=== PATIENT | male | born 1945 | race Caucasian/White ===

== ENCOUNTER 2016-12-02 08:41 | Outpatient (CLI) | payer MEDICARE, BC ==
--- NOTE | ~2016-12-02 | HEMODYNAMI ---
PATIENT:HENNA DESAI MEDICAL RECORD: [id number] : 47 LOCATION:[facility] ADMISSION DATE: 12/02/16 Generatedon:12/02/201610:59 Patient name: HENNA DESAI Patient #: [id number] SSN: DO B: 1945 Date of study: 12/02/2016 Page: Of Hemodynamic Procedure Report Patient Data Patient Demographics Procedure consent was obtained First Name: HENNA Gender: Male Last Name: LLOYD : 1945 [facility] Initial: KARLA Age: 71 year(s) Patient #: [id number] Race: Unknown Additional ID: [id number] Contact details Address: [address] [place] [address] State: [place] City: [place] Zip code: [address] Past Medical History Allergies Allergen Reaction Date Comments Reported Other allergy 12/02/2016 tetnus Admission Admission Data Admission Date: 12/02/2016 Admission Time: 8:41 Lab Results Lab Result Date: 12/02/2016 Lab Result Time: 0:00 Biochemistry Name Units Result Min Max BUN mg/dl 21 --(----)-* 7 18 Creatinine mg/dl 1.1 --(--*-)-- 0.6 1.3 CBC Name Units Result Min Max Hemoglobin g/dl 14.4 --(*---)-- 13.5 17.5 Procedure Procedure Types Cath Procedure Diagnostic Procedure [facility] w/Coronaries FFR/IVUS Intra-Coronary IVUS Initial PCI Procedure Coronary Stent Initial Coronary Stent Additional Miscellaneous Procedures Procedure Description Procedure Date Procedure Date: 12/02/2016 Procedure Start Time: 10:35 Procedure End Time: 10:58 Procedure Staff Name Function Jake Gerber MD Performing Physician Coby Arteaga RT Scrub Berta Maciel RN Nurse Pamela Godinez RT Monitor Procedure Data Cath Procedure Fluoroscopy Diagnostic fluoroscopy Total fluoroscopy Time: 7.5 time: 7.5 min min Diagnostic fluoroscopy Total fluoroscopy dose: dose: 1331 mGy 1331 mGy Contrast Material Contrast Material Type Amount (ml) Isovue 300 122 Entry Location Entry Primary Successful Side Size Upsize Upsize Entry Closure Succes sful Closure Location (Fr) 1 (Fr) 2 (Fr) Remarks Device Remarks Femoral Right 5 Fr 6 Fr Exoseal artery Short Estimated blood loss: 10 ml Diagnostic catheters Device Type Used For End Catheter Placement Cordis 5Fr Pigtail Procedure Catheter (MP) Cordis 5Fr JL 4.0 Procedure Catheter (MP) Cordis 5Fr 3DRC Catheter Procedure (MP) Diagnostic Infinity 5Fr Procedure AR 2 MOD catheter Procedure Complications No complications Procedure Medications Medication Administration Route Dosage Oxygen NC 2 l/min Lidocaine 2% added to field 20 Heparin Flush Bag added to field 2 bags (1000units/500ml NS) 0.9% NaCl I.V. 100 ml/hr Versed I.V. 1 mg Fentanyl I.V. 50 mcg Versed I.V. 1 mg Fentanyl I.V. 50 mcg Heparin Bolus I.V. 4000 units Integrilin (Bolus I.V. 9.5 ml 2mg/ml) Versed I.V. 1 mg Fentanyl I.V. 50 mcg Plavix P.O. 600 mg Hemodynamics Rest HGB: 14.4 (g/dl) Heart Rate: 85 (bpm) Snapshots Pre Cath Intra NCS Post Cath Vital Signs Time Heart Resp SPO2 NIBP (mmHg) Rhythm Pain Sedation Rate (ipm) (%) Status Level (bpm) 10:23:32 93 22 99 Measuring NSR 0 (11) 10(A) , No pain 10:26:05 84 16 99 155/91(139) NSR 0 (11) 10(A) , No pain 10:30:36 81 17 96 134/94(114) NSR 0 (11) 10(A) , No pain 10:34:58 83 15 94 119/100(114) NSR 0 (11) 10(A) , No pain 10:40:01 86 16 96 151/108(148) NSR 0 (11) 9(A) , No pain 10:44:29 86 17 96 148/94(126) NSR 0 (11) 9(A) , No pain 10:48:47 87 19 94 124/91(122) NSR 0 (11) 9(A) , No pain 10:54:54 86 17 97 137/93(106) NSR 0 (11) 10(A) , No pain Medications Time Medication Route Dose Verified Delivered Reason Notes Effectiveness by by 10:21:55 Oxygen NC 2 Jake Buffie used for l/min Buzz Maciel RN procedure 10:22:01 Lidocaine 2% added 20ml Jake Jake for local to vial Buzz Gerber MD anesthetic field 10:22:06 Heparin Flush added 2 Jake Jake used for Bag to bags Buzz Gerber MD procedure (1000units/500ml field NS) 10:22:15 0.9% NaCl I.V. 100 Jake Buffie Per physician ml/hr Buzz Maciel RN 10:33:35 Versed I.V. 1 mg Jake Dawnie for sedation Buzz Maciel RN 10:33:40 Fentanyl I.V. 50 Jake Buffie for sedation mcg Buzz Maciel RN 10:39:44 Versed I.V. 1 mg Jake Dawnie for sedation Buzz Maciel RN 10:39:47 Fentanyl I.V. 50 Jake Dawnie for sedation mcg Buzz Maciel RN 10:43:29 Heparin Bolus I.V. 4000 Jake Buffie for verifi ed units Buzz Maciel RN anticoagulation with dr gerber 10:44:36 Integrilin I.V. 9.5 Jake Dawnie for Wasted (Bolus 2mg/ml) ml Buzz Maciel RN antiplatelet 0.5 ml therapy of vial 10:48:06 Versed I.V. 1 mg Jake Dawnie for sedation Buzz Maciel RN 10:48:10 Fentanyl I.V. 50 Jake Dawnie for sedation mcg Buzz Maciel RN 10:55:44 Plavix P.O. 600 Jake Dawnie for mg Buzz Maciel RN antiplatelet therapy Procedure Log Time Note 10:00:09 Coby Arteaga RT(R) sent for patient. Start room use. 10:18:55 Diagnostic Cath Status : Elective 10:19:15 Time tracking: Regular hours 10:19:19 Plan of Care:Hemodynamics will remain stable., Cardiac rhythm will remain stable., Comfort level will be maintained., Respiratory function will remain adequate., Patient/ family verbilizes understanding of procedure., Procedure tolerated without complication., Recovers from procedure without complications.. 10:19:25 Patient received from Pre/Post Procedure Room to CCL 2 Alert and oriented. Tansferred to table in Supine position. 10:19:27 Warm blankets applied, and marcello hugger turned on for patient comfort. 10::27 Correct patient and procedure confirmed by team. 10::29 Signed procedure consent form obtained from patient. 10:19:30 ECG and BP/O2 sat monitors applied to patient. 10:21:43 Vital chart was started 10:21:55 Oxygen 2 l/min NC was administered by Berta Maciel RN; used for procedure; 10:22:01 Lidocaine 2% 20ml vial added to field was administered by Jake Gerber MD; for local anesthetic; 10:22:06 Heparin Flush Bag (1000units/500ml NS) 2 bags added to field was administered by Jake Gerber MD; used for procedure; 10:22:15 0.9% NaCl 100 ml/hr I.V. was administered by Berta Maciel RN; Per physician; 10:25:23 Baseline sample Acquired. 10:25:33 Rhythm: sinus tachycardia 10:25:34 Full Disclosure recording started 10:25:54 H&P Date Dictated: 11/23/2016 Within 30 days and on chart., H&P Addendum completed by physician on day of procedure. (MUST COMPLETE FOR ALL OUTPATIENTS). 10:25:55 Pre-procedure instructions explained to patient. 10:25:57 Family in waiting room. 10:25:59 Patient NPO since Midnight. 10:26:11 Patient allergic to Other allergytetnus 10:26:15 Is the patient allergic to Iodine/contrast media? No. 10:28:36 Is patient on blood thinner?No 10:28:39 Patient diabetic? Yes. 10:28:40 If diabetic: On Metformin? Yes 10:28:44 If on Metformin: Last Dose? 12/01/2016 10:28:49 Snore? Yes 10:28:51 Sleep apnea? No 10:28:57 Dentures? Yes ? 10:29:05 IV patent on arrival in left forearm with 0.9% NaCl at KVO. 10:30:18 Lab results completed and on chart. 10:33:12 Lab Result : BUN 21 mg/dl 10:33:12 Lab Result : Creatinine 1.1 mg/dl 10:33:12 Lab Result : Hemoglobin 14.4 g/dl 10:33:18 Right groin area was prepped with chlora-prep and draped in sterile fashion 10:33:20 Alarms reviewed by R. N. 10:33:21 Sharps counted by scrub and verified by R.N. 10:33: Physician paged 10:33: Physician arrived 10:33:23 --------ALL STOP TIME OUT------ 10:33:26 Final Timeout: patient, procedure, and site verified with staff and physician. All members of the team are in agreement. 10:33:29 Right groin site verified by team. 10:33:33 Sedation plan: IV Moderate Sedation Versed, Fentanyl 10:33:35 Versed 1 mg I.V. was administered by Berta Maciel RN; for sedation; 10:33:40 Fentanyl 50 mcg I.V. was administered by Berta Maciel RN; for sedation; 10:34:06 Use device set Femoral Dx 10:34:09 Acist Syringe opened to sterile field. 10:34:10 Bag Decanter opened to sterile field. 10:34:11 Medline Cath Pack opened to sterile field. 10:34:11 Terumo 5Fr [place] Sheath opened to sterile field. 10:34:11 St Chago 260cm J .035 wire opened to sterile field. 10:34:13 Acist Hand Control opened to sterile field. 10:34:13 Acist Manifold opened to sterile field. 10:34:14 Diagnostic Infinity 5Fr Multipack catheter opened to sterile field. 10:34:14 Tegaderm 4 x 4 opened to sterile field. 10:34:17 Zero performed for pressure channel P1 10:35:24 Procedure started. 10:35:34 Local anesthetic to right femoral artery with Lidocaine 2% by Jake Gerber MD.INITIAL ACCESS ONLY 10:35:43 A 5 Fr sheath was inserted into the Right Femoral artery 10:35:55 Zero performed for pressure channel P1 10:36:22 A Cordis 5Fr Pigtail Catheter (MP) was advanced over the wire and used for Procedure. 10:36:43 EF : 60 % 10:36:45 Catheter removed. 10:36:55 A Cordis 5Fr JL 4.0 Catheter (MP) was advanced over the wire and used for Procedure. 10:37:01 LCA angiography performed. 10:37:37 Catheter removed. 10:37:46 A Cordis 5Fr 3DRC Catheter () was advanced over the wire and used for Procedure. 10:38:39 ERNST to LAD angiography performed. 10:38:44 RCA angiography performed. 10:39:44 Versed 1 mg I.V. was administered by Berta Maciel RN; for sedation; 10:39:47 Fentanyl 50 mcg I.V. was administered by Berta Maciel RN; for sedation; 10:40:02 Catheter removed. 10:40:30 A Diagnostic Infinity 5Fr AR 2 MOD catheter was advanced over the wire and used for Procedure. 10:40:35 SVG to Diag angiography performed. 10:41:47 Catheter removed. 10:42:24 Terumo 6Fr [place] Sheath opened to sterile field. 10:42:24 Dunn Whisper J 300cm 0.014 guide wire opened to sterile field. 10:42:26 [employer] BasixCompak Inflation Kit opened to sterile field. 10:42:27 Yarraatronic Launcher 6Fr HS II guide catheter opened to sterile field. 10:42:28 Burtrum Elim Ira Eagleye IVUS Catheter opened to sterile field. 10:42:31 Proceeding to intervention. 10:42:48 Sheath upsized to a 6 Fr Short. 10:43:29 Heparin Bolus 4000 units I.V. was administered by Berta Maciel RN; for anticoagulation; verified with dr gerber 10:43:39 6 Fr HS 2 guide catheter was inserted over the wire 10:43:43 Whisper wire advanced. 10:44:36 Integrilin (Bolus 2mg/ml) 9.5 ml I.V. was administered by Berta Maciel RN; for antiplatelet therapy; Wasted 0.5 ml of vial 10:45:27 IVUS catheter advanced over wire. 10:45:33 IVUS catheter removed over wire. 10:47:50 Inflation number: 1 A Euphora 2.0 x 20 Balloon was prepped and advanced across the R PDA, then inflated to 11 SPEEDY for 0:10 (min:sec). 10:48:06 Versed 1 mg I.V. was administered by Berta Maciel RN; for sedation; 10:48:09 Inflation number: 2 The Euphora 2.0 x 20 Balloon was reinflated across the R PDA, to 11 SPEEDY for 0:10 (min:sec). 10:48:10 Fentanyl 50 mcg I.V. was administered by Berta Maciel RN; for sedation; 10:48:18 Balloon removed over the wire. 10:50:28 Inflation Number: 3 A Zane OTW 2.25 x 38 stent was prepped and advanced across the R PDA. The stent was deployed at 11 SPEEDY for 0:10 (min:sec). 10:51:04 Stent catheter was removed intact over wire. 10:52:15 Inflation Number: 1 A Yarraatronic Integrity 4.0 X 18 stent was prepped and advanced across the Prox RCA. The stent was deployed at 17 SPEEDY for 0:10 (min:sec). 10:55:44 Plavix 600 mg P.O. was administered by Berta Maciel RN; for antiplatelet therapy; 10:56:09 Stent catheter was removed intact over wire. 10:56:10 Wire removed. 10:56:10 Guide catheter removed. 10:56:19 Cordis 6Fr Exoseal opened to sterile field. 10:56:29 Sheath removed intact; hemostasis achieved with Exoseal to the Right Femoral artery. 10:56:35 Procedure ended.(Physican Out) 10:56:48 Fluoroscopy time 07.50 minutes. 10:56:51 Fluoroscopy dose: 1331 mGy 10:56:51 Flurop Dose total: 1331 10:56:56 Contrast amount:Isovue 300 122ml. 10:56:57 Sharps counted by scrub and verified by R.N. 10:57:00 Insertion/operative site no bleeding no hematoma. 10:57:02 Post Procedure Pulses reassessed and unchanged 10:57:09 Post-procedure physical assessment completed. ASA score P 3 - A patient with severe systemic disease as per Jake Gerber MD. 10:57:13 Post procedure rhythm: unchanged. 10:57:16 Estimated blood loss: 10 ml 10:57:18 Post procedure instruction explained to patient.Patient verbalizes understanding. 10:57:48 Procedure type changed to Cath procedure, Diagnostic procedure, LHC, LHC w/Coronaries, FFR/IVUS, Intra-Coronary IVUS Initial, PCI procedure, Coronary Stent Initial, Coronary Stent Additional, Miscellaneous Procedures 10:58:06 Procedure and supply charges have been captured, reviewed, submitted and are correct. 10:58:28 Procedure Complication : No complications 10:58:31 Vital chart was stopped 10:58:31 See physician's report for complete and final results. 10:58:33 Report given to Pre/Post Procedure Room. 10:58:36 Patient transfered to Pre/Post Procedure Room with Stretcher. 10:58:39 Procedure ended. 10:58:39 Full Disclosure recording stopped 10:58:44 End room use (Document Last) 10:58:56 ACC-PCI Only Patient was given prescriptions, or instructed by Jake Gerber MD to start/continue the following medications upon discharge: Plavix Intervention Summary Intervention Notes Time ActionType Lesion and Equipment Action# Pressure Duration Attributes Used 10:47:50 Inflate R PDA Euphora 1 11 00:10 balloon 2.0 x 20 Balloon 10:48:09 Reinflate R PDA Euphora 2 11 00:10 balloon 2.0 x 20 Balloon 10:50:28 Place stent R PDA Zane OTW 3 11 00:10 2.25 x 38 stent 10:52:15 Place stent Prox RCA Medtronic 1 17 00:10 Integrity 4.0 X 18 stent Device Usage Item Name Manufacture Quantity Catalog Hospital Part Current Minimal Lot# / Number Charge Number Stock Stock Serial# Code Acist Acist 1 26971 264431 204048 082694 20 Syringe [employer] Inc Bag Microtek 1 2002S 362142 30070 263944 5 Shahab P. Tabatabai, [employer] Medline Cardinal 1 [id number] 019425 72834 392477 5 Cath Pack Health Terumo 5Fr Terumo 1 INX136 233463 201001 294729 [address] Chago 1 338012 455178 632080 998801 30 260cm J .035 wire Acist Hand Acist 1 77424 802122 822787 607577 5 Control Medical Systems Inc Acist Acist 1 25997 404243 315418 879442 5 Manifold Medical Systems Inc Diagnostic Cardinal 1 [id number] 774378 21339 469904 30 Infinity Health 5Fr Multipack catheter Tegaderm 4 3M 1 1626W 034427 325348 039245 5 x 4 Cordis 5Fr Cardinal 1 [id number] 5 Pigtail Health Catheter (MP) Cordis 5Fr Cardinal 1 036327 5 JL 4.0 Health Catheter (MP) Cordis 5Fr Cardinal 1 428437 5 3DRC Health Catheter (MP) Diagnostic Cardinal 1 [id number] 299480 290331 009341 20 Spreedly 5Fr AR 2 MOD catheter Terumo 6Fr Terumo 1 IQP950 130422 276810 782727 40 [place] Sheath Dunn Dunn 1 [id number] 002983 174458 741975 5 Whisper J Vascular 300cm 0.014 guide wire Merit Merit 1 YT2136 575452 201540 690836 15 BasixCompak Medical Inflation Kit Medtronic Medtronic 1 [id number] 888144 30980 477315 1 Launcher 6Fr HS II guide catheter Burtrum Burtrum 1 [id number] 923398 425999 251780 8 Elim Ira Eagleye IVUS Catheter Euphora 2.0 Medtronic 1 [id number] 060065 289714 847550 5 [id number] x 20 Balloon Zane OTW Medtronic 1 [id number] 193321 90477 545628 5 [id number] 2.25 x 38 stent Medtronic Medtronic 1 [id number] 611442 207741 8 [id number] Integrity 4.0 X 18 stent Cordis 6Fr Cardinal 1 [id number] 378714 291474 649458 10 [facility] Signature Audit [place] Stage Time Signature Unsigned Intra-Procedure 12/02/2016 Pamela Godinez 10:59:12 AM RT(R) Signatures Monitor : Pamela Godinez Signature : RT Date : Time : [facility] [address] [facility] [place] [address]
[2016-12-02] MEDS ORDERED: GLUCOPHAGE1000 MG PO (09:01)
[2016-12-02] MEDS ORDERED: NEURONTIN600 MG PO (09:01)
[2016-12-02] MEDS ORDERED: LEVEMIR100 U/M1 SC (09:02)
[2016-12-02] MEDS ORDERED: EFFEXOR XR150 MG PO (09:03)
[2016-12-02] MEDS ORDERED: ZOCOR40 MG PO (09:04)
[2016-12-02] MEDS ORDERED: FLOMAX0.4 MG PO (09:04)
[2016-12-02] MEDS ORDERED: NOVOLOG100 U/M1 SC (09:04)
[2016-12-02] MEDS ORDERED: PRINIVIL20 MG PO (09:05)
[2016-12-02] MEDS ORDERED: PROPECIA1 MG PO (09:06)
[2016-12-02] MEDS ORDERED: TOPROL XL50 MG PO (09:06)
[2016-12-02] MEDS ORDERED: BAYER CHEWABLE81 MG PO (09:07)
[2016-12-02] MEDS ORDERED: POTASSIUM99 M1 PO (09:07)
[2016-12-02 09:17] VITALS: BP 159/87; BMI 32.9
[2016-12-02 09:23] LABS: BASOPHILS 0.5 % (0-2); EOSINOPHILS 3.6 % (0-7); HEMATOCRIT 40.6 % (42.0-54.0); HEMOGLOBIN 14.4 g/dL (13.5-17.5); LYMPHOCYTES 30.9 % (15-50); MCH 31.8 pg (26.0-34.0); MCHC 35.5 g/dL (31.0-37.0); MCV 89.6 fL (80.0-100.0); MEAN PLATELET VOLUME 10.4 fL (7.4-10.4); MONOCYTES 9.6 % (2-11); NEUTROPHILS 55.4 % (40-80); PLATELET COUNT 171 10x3/uL (130-400); RBC 4.53 10x6/uL (4.20-6.10); WBC 7.3 10x3/uL (4.8-10.8)
[2016-12-02 09:42] LABS: ANION GAP 11.4 mmol/L (8-16); CALCIUM 9.7 mg/dL (8.5-10.1); CARBON DIOXIDE 28.1 mmol/L (21.0-32.0); CREATININE - SERUM 1.1 mg/dL (0.6-1.3); POTASSIUM - SERUM 4.5 mmol/L (3.5-5.1)
--- NOTE | 2016-12-02 11:20 | NUR ---
1110 RECEIVED PT FROM INSPECTOR SUBASSEMBLIES, PT IS DROWSY, DENIES ANY C/O PAIN OR NAUSEA. DRESSING TO RIGHT GROIN IS CDI, AREA IS SOFT AND NONTENDER. PEDAL PULSES PALPABLE. NSR, HR 88. BP 142/89. RR EVEN AND UNLABORED ON O2 AT 2 LPM, SAT IS 98%, CALL LIGHT IN REACH, AT BEDSIDE. INSTRUCTED PT/ PT NEED TO KEEP HEAD TO PILLOW AND RIGHT LEG STRAIGHT AND VERBALIZE UNDERSTANDING.
[2016-12-02] MEDS ORDERED: PLAVIX75 MG PO (11:40)
--- NOTE | 2016-12-02 11:52 | NUR ---
HR 84 BP 164/86 CHEST PAIN IS DENIED. 6 FR EXOSEAL R/GROIN CDI NO BLEEDING NO HEMATOMA NOTED. INSTRUCTED PATIENT TO KEEP HEAD FLAT ON PILLOW WITH RLE STRAIGHT. FAMILY AT SIDE
--- NOTE | 2016-12-02 12:39 | NUR ---
1220 DRESSING TO RIGHT GROIN IS CDI, AREA IS SOFT AND NONTENDER. PEDAL PULSES PALPABLE. PT DENIES ANY C/O. BERNARDA PO FLUIDS WITH NO C/O NAUSEA. AT BEDSIDE.
--- NOTE | 2016-12-02 13:18 | NUR ---
1315 PT DENIES ANY C/O. PT BENDING RIGHT KNEE AND MOVING RIGHT LEG UPON ARRIVAL OF NURSE. REINFORCED TEACHING TO LIMIT MOVEMENT OF LEG AND PT VERBALIZES UNDERSTANDING. AT BEDSIDE, CALL LIGHT IS IN REACH.
--- NOTE | 2016-12-02 13:30 | NUR ---
1330 DRESING RIGHT GROIN REMAINS CDI, AREA SOFT AND NONTENDER. PEDAL PULSES PALPABLE. PT DENIES ANY C/O.
--- NOTE | 2016-12-02 14:30 | NUR ---
1430 HOB ELEVATED 45 DEGREES, SANDWICH SERVED. CATH SITE FREE FROM BLEEDING OR HEMATOMA, PT DENIES ANY C/O.
--- NOTE | 2016-12-02 15:00 | NUR ---
1500 IV DC'D WITH CATH INTACT. DC INSTRUCTIONS REVIEWED WITH PT AND WHO VERBALIZE UNDERSTANDING. PT DRESSING FOR DC.
--- NOTE | 2016-12-02 15:30 | NUR ---
1520 PT HAS DRESSED FOR DC TO HOME. HAS AMBULATED TO THE BATHROOM AND VOIDED QS. PT ESCORTED TO PRIVATE AUTO VIA WC BY STAFF WITH DRIVING HIM HOME.
--- NOTE | 2016-12-04 16:47 | OP ---
PATIENT NAME: HENNA DESAI MEDICAL RECORD: [id number] :47 LOCATION:D.CAT ADMISSION DATE: SURGEON: GARRETT TREJO MD DATE OF OPERATION: 12/02/2016 PROCEDURES: 1. PTCA stent RCA. 2. PTCA stent RCA and PDA. 3. Left heart catheterization. 4. Selective coronary angiography. 5. Left ventriculogram. 6. Vein graft angiography. 7. ERSNT angiography. INDICATION: Angina and coronary artery disease. PROCEDURE IN DETAIL: After informed consent was obtained and after detailed explanation of risks, benefits as well as alternative therapies, the patient elected to proceed with angiogram and angioplasty. The right femoral area was prepped and draped in normal sterile fashion. The right femoral artery was cannulated via modified Seldinger technique with placement of 6-[place] sheath. All catheters exchanged through this sheath. FINDINGS: The left ventriculogram was performed in standard 30-degree MEEKS view, reveals good cardiac wall motion throughout all segments. Overall ejection fraction estimated 60%. SELECTIVE CORONARY ANGIOGRAPHY: 1. Left main showed no significant angiographic disease. 2. Left anterior descending is totally occluded. 3. Left circumflex is very small, nondominant and it does not appear to be grafted. 4. ERNST to the LAD is widely patent. 5. Vein graft to the LAD diagonal is widely patent. 6. The right coronary has a 70% stenosis confirmed by intravascular ultrasound in the proximal aspect. The PDA has 90% to 95% stenosis. PTCA STENT OF THE RCA and PDA. The PDA was addressed with a 2.25 x 38 mm [place]. The RCA with a 4.0 x 18 mm Integrity. Result was 0% residual stenosis. OVERALL IMPRESSION: Successful percutaneous transluminal coronary angioplasty stent of the RCA and PDA going from 70% and 95% initial stenosis to 0% residual stenosis. TRANSINT:[id number] Voice Confirmation ID: [id number] DOCUMENT ID: [id number] GARRETT TREJO MD at 1647 CC: [id number] DICTATION DATE: 12/02/[address] SUPERVISOR: 12/02/16 1235 DEP CLI 12/02/16 [place] [address]
== END 2016-12-02 15:20 | disposition home or self-care (01) ==
LOC: D.CATH 08:41
PROVIDERS: Internal Medicine Interventional Cardiology
DX: I25.10 Atherosclerotic heart disease of native coronary artery without angina pectoris (principal); I10 Essential (primary) hypertension; E78.5 Hyperlipidemia, unspecified; R06.02 Shortness of breath; Z95.1 Presence of aortocoronary bypass graft; Z01.812 Encounter for preprocedural laboratory examination
CPT/HCPCS: 92928; 93459; 92978; C9601

== ENCOUNTER 2017-11-23 19:37 | Observation (INO) | payer MEDICARE, BC ==
[~2017-11-23] VITALS: Ht 180.3 cm; Wt 107.3 kg
--- NOTE | ~2017-11-23 | HEMODYNAMI ---
PATIENT:HENNA DESAI MEDICAL RECORD: [id number] : 47 LOCATION:[facility] D.2116 ADMISSION DATE: 11/23/17 Generatedon:11/25/201712:14 Patient name: HENNA DESAI Patient #: [id number] SSN: DO B: 1945 Date of study: 11/25/2017 Page: Of Hemodynamic Procedure Report Patient Data Patient Demographics Procedure consent was obtained First Name: HENNA Gender: Male Last Name: LLOYD : 1945 [facility] Initial: KARLA Age: 72 year(s) Patient #: [id number] Race: Unknown Additional ID: [id number] Contact details [address]: [address] [place] [address] State: [place] City: [place] Zip code: [address] Past Medical History Allergies Allergen Reaction Date Comments Reported Other allergy 12/02/2016 tetnus Other allergy 11/24/2017 tetanus, toxiod? Other allergy 11/25/2017 TETANUS VACCINES AND TOXOID Admission Admission Data Admission Date: 11/23/2017 Admission Time: 21:57 Room #: D.2116 Procedure Procedure Types Cath Procedure Diagnostic Procedure Sedation Charges Moderate Sedation up to 15 minutes PCI Procedure Coronary Stent Coronary Stent Initial Peripheral Cath Diagnostic Procedure Abd/Extremity Renal Bilat Renal Arteriogram Procedure Description Procedure Date Procedure Date: 11/25/2017 Procedure Start Time: 11:49 Procedure End Time: 12:13 Procedure Staff Name Function Jake Gerber MD Performing Physician Brett Montalvo RT Monitor Lilliana Villar RT Scrub Shad Bhatt RN Nurse Procedure Data Cath Procedure Fluoroscopy Diagnostic fluoroscopy Total fluoroscopy Time: 4 time: 4 min min Diagnostic fluoroscopy Total fluoroscopy dose: 575 dose: 575 mGy mGy Contrast Material Contrast Material Type Amount (ml) Isovue 300 150 Entry Location Entry Primary Successful Side Size Upsize Upsize Entry Closure Succes sful Closure Location (Fr) 1 (Fr) 2 (Fr) Remarks Device Remarks Femoral Left 6 Fr Exoseal artery Short Estimated blood loss: 10 ml Procedure Complications No complications Procedure Medications Medication Administration Route Dosage Oxygen etCO2 Nasal cannula 2 l/min Heparin Flush Bag added to field 2 bags (1000units/500ml NS) 0.9% NaCl I.V. 100 ml/hr Fentanyl I.V. 100 mcg Versed I.V. 2 mg Heparin Bolus I.V. 5000 units Fentanyl I.V. 50 mcg Versed I.V. 1 mg Hemodynamics Rest Heart Rate: 105 (bpm) Snapshots Pre Cath Intra NCS Post Cath Vital Signs Time Heart Resp SPO2 etCO2 NIBP (mmHg) Rhythm Pain Sedation Rate (ipm) (%) (mmHg) Status Level (bpm) 11:36:45 102 17 96 18.7 192/124(160) NSR 0 (11) 10(A) , No pain 11:41:40 101 16 94 33 177/105(147) NSR 0 (11) 10(A) , No pain 11:46:27 103 17 95 33 166/111(148) NSR 0 (11) 10(A) , No pain 11:51:15 103 16 95 38.3 179/119(151) NSR 0 (11) 9(A) , No pain 11:56:08 102 16 95 39.8 190/113(148) NSR 0 (11) 9(A) , No pain 12:01:07 99 16 95 28.5 166/113(151) NSR 0 (11) 9(A) , No pain 12:04:08 103 17 96 34.5 179/113(151) NSR 0 (11) 9(A) , No pain 12:09:03 104 10 96 35.3 172/109(139) NSR 0 (11) 9(A) , No pain 12:13:50 103 12 97 33 159/113(143) NSR 0 (11) 9(A) , No pain Medications Time Medication Route Dose Verified Delivered Reason Notes Effectiveness by by 11:34:53 Oxygen etCO2 2 Jake Kulkarni Per physician Nasal l/min Buzz Bhatt RN cannula 11:35:01 Heparin Flush added 2 Jake Kulkarni used for Bag to bags Buzz Bhatt police detective (1000units/500ml field NS) 11:35:10 0.9% NaCl I.V. 100 Jake Kulkarni Per physician ml/hr Buzz Bhatt RN 11:46:38 Fentanyl I.V. 100 Jake Kulkarni for sedation mcg Buzz Bhatt RN 11:46:44 Versed I.V. 2 mg Jake Kulkarni for sedation Buzz Bhatt RN 11:53:54 Heparin Bolus I.V. 5000 Jake Kulkarni for units Buzz Bhatt RN anticoagulation 11:54:00 Fentanyl I.V. 50 Jake Kulkarni for sedation mcg Buzz Bhatt RN 11:54:05 Versed I.V. 1 mg Jake Kulkarni for sedation Buzz Bhatt RN Procedure Log Time Note 11:15:08 Shad Bhatt RN sent for patient. Start room use. 11:22:52 Signed procedure consent form obtained from patient. 11:24:09 Time tracking: Regular hours (M-F 7:00 - 5:00) 11:24:13 Plan of Care:Hemodynamics will remain stable., Cardiac rhythm will remain stable., Comfort level will be maintained., Respiratory function will remain adequate., Patient/ family verbilizes understanding of procedure., Procedure tolerated without complication., Recovers from procedure without complications.. 11:24:32 H&P Date Dictated: 11/23/2017 Within 30 days and on chart., H&P Addendum completed by physician on day of procedure. (MUST COMPLETE FOR ALL OUTPATIENTS). 11:25:00 Patient allergic to Other allergyTETANUS VACCINES AND TOXOID 11:29:01 Patient received from Med II to CCL 1 Alert and oriented. Tansferred to table in Supine position. 11:29:02 Warm blankets applied, and marcello hugger turned on for patient comfort. 11:29:02 Correct patient and procedure confirmed by team. 11:29:03 ECG and BP/O2 sat monitors applied to patient. 11:32:05 Pre-procedure instructions explained to patient. 11:32:08 Family in waiting room. 11:32:11 Patient NPO since Midnight. 11:32:17 Is the patient allergic to Iodine/contrast media? No. 11:32:19 Was the patient premedicated? Yes 11:32:25 Is patient on blood thinner?Yes 11:34:37 ACC The patient was administered the following blood thiners within the last 24 hours: ACCPlavix 11:34:40 Vital chart was started 11:34:50 Patient diabetic? Yes. 11:34:53 Oxygen 2 l/min etCO2 Nasal cannula was administered by Shad Bhatt RN; Per physician; 11:34:53 If diabetic: On Metformin? No 11:35:01 Heparin Flush Bag (1000units/500ml NS) 2 bags added to field was administered by Shad Bhatt RN; used for procedure; 11:35:07 Snore? Yes 11:35:09 Sleep apnea? Yes 11:35:10 0.9% NaCl 100 ml/hr I.V. was administered by Shad Bhatt RN; Per physician; 11:35:12 Deviated septum? No 11:35:14 Opens mouth fully? Yes 11:35:16 Sticks out tongue? Yes 11:35:23 Dentures? Yes ? 11:35:28 Patient pain scale 0/10 ?. 11:35:35 IV patent on arrival in left forearm with 0.9% NaCl at [facility]. 11:35:54 Lab results completed and on chart. 11:36:00 Right Radial & Right Groin area was prepped with chlora-prep and draped in sterile fashion 11:36:00 Alarms reviewed by R. N. 11:36:01 Sharps counted by scrub and verified by R.N. 11:36:03 Physician paged 11:36:09 Baseline sample Acquired. 11:36:15 Rhythm: sinus rhythm 11:36:17 Full Disclosure recording started 11:38:20 Pre procedure: left dorsailis pedis pulse 1+ Palpable, but thready & weak; easily obliterated 11:46:17 Physician arrived 11:46:17 --------ALL STOP TIME OUT------ 11:46:18 Final Timeout: patient, procedure, and site verified with staff and physician. All members of the team are in agreement. 11:46:20 Left groin site verified by team. 11:46:24 Physical assessment completed. ASA score P 2 - A patient with mild systemic disease as per Jake Gerber MD. 11:46:28 Sedation plan: IV Moderate Sedation Medication:Versed, Fentanyl 11:46:38 Fentanyl 100 mcg I.V. was administered by Shad Bahtt RN; for sedation; 11:46:44 Versed 2 mg I.V. was administered by Shad Bhatt RN; for sedation; 11:47:02 CHOICE PT Extra Support 182cm wire ([id number]) opened to sterile field. 11:47:20 EXOSEAL 6Fr (EX600) opened to sterile field. 11:47:26 Bag Decanter () opened to sterile field. 11:47:26 ACIST Syringe (58373) opened to sterile field. 11:47:28 Medline Cath Pack ([id number]) opened to sterile field. 11:47:30 DIAGNOSTIC WIRE .035 260cm J wire (554895) opened to sterile field. 11:47:31 ACIST Manifold (23636) opened to sterile field. 11:47:31 ACIST Hand Control (87524) opened to sterile field. 11:47:40 Tegaderm 4 x 4 (1626W) opened to sterile field. 11:47:55 SHEATH Prelude 6Fr 0.035 (MOE-8C-33-035) opened to sterile field. 11:48:58 GUIDE 6FR XBLAD 3.5 catheter ([id number]) opened to sterile field. 11:49:02 Zero performed for pressure channel P1 11:49:33 Procedure started. 11:49:37 Local anesthetic to left femerol artery with Lidocaine 2% by Jake Gerber MD.INITIAL ACCESS ONLY 11:49:44 A 6 Fr Short sheath was inserted into the Left Femoral artery 11:52:12 DXT 5 3DRC opened to sterile field. 11:52:28 3DRC ADVANCED OVER WIRE FOR PROCEDURE 11:52:34 Right renal angiography performed. 11:52:35 Left renal angiography performed. 11:52:38 Catheter removed. 11:53:15 Cordis 6Fr RDC guide catheter opened to sterile field. 11:53:54 Heparin Bolus 5000 units I.V. was administered by Shad Bhatt RN; for anticoagulation; 11:53:56 WHISPER 300cm guide wire ([id number]) opened to sterile field. 11:54:00 Fentanyl 50 mcg I.V. was administered by Shad Bhatt RN; for sedation; 11:54:05 Versed 1 mg I.V. was administered by Shad Bhatt RN; for sedation; 11:54:08 6 Fr RDC guide catheter was inserted over the wire 11:54:11 WHISPER wire advanced. 11:55:21 Procedure type changed to Cath procedure, Diagnostic procedure, Sedation Charges, Moderate Sedation up to 15 minutes, PCI procedure, Coronary Stent, Coronary Stent Initial, Peripheral Cath Diagnostic Procedure, Abd/Extremity, Renal, Bilat Renal Arteriogram 11:56:00 Wire advanced across lesion. 11:56:01 Place stent Inflation Number: 1 A PALMAZ BLUE 5 x 15 x 135 stent ([id number]) was prepped and advanced across the Proximal Renal, Left. The stent was deployed at 11 SPEEDY for 0:10 (min:sec). 11:56:03 Stent catheter was removed intact over wire. 11:56:03 Wire removed. 11:56:04 Guide catheter removed. 11:56:11 6 Fr XBLAD 3.5 guide catheter was inserted over the wire 11:57:58 CHOICE PT ES wire advanced. 11:58:33 Wire advanced across lesion. 11:59:02 Inflate balloon Inflation number: 1 A EUPHORA 2.0 x 15 Balloon ([id number]) was prepped and advanced across the Prox CX, then inflated to 11 SPEEDY for 0:10 (min:sec). 11:59:12 Balloon removed over the wire. 12:00:43 Place stent Inflation Number: 2 A ADAL RX 2.0 x 22 stent ([id number]) was prepped and advanced across the Prox CX. The stent was deployed at 15 SPEEDY for 0:10 (min:sec). 12:01:12 Stent catheter was removed intact over wire. 12:01:12 Wire removed. 12:01:13 Guide catheter removed. 12:01:32 Sheath removed intact; hemostasis achieved with Exoseal to the Left Femoral artery. 12:01:43 Procedure ended.(Physican Out) 12:07:41 Fluoroscopy time 04.00 minutes. 12:07:49 Flurop Dose total: 575 12:07:49 Fluoroscopy dose: 575 mGy 12:08:05 Contrast amount:Isovue 300 150ml. 12:08:06 Sharps counted by scrub and verified by R.N. 12:08:38 Insertion/operative site no bleeding no hematoma. 12:08:42 Post-op/insertion site Left Femoral artery dressed using a 4 x 4 and Tegaderm. 12:08:46 Post left femerol artery:stable, soft, clean and dry 12:08:48 Post Procedure Pulses reassessed and unchanged 12:08:50 Post-procedure physical assessment completed. ASA score P 2 - A patient with mild systemic disease as per Jake Gerber MD. 12:08:52 Post procedure rhythm: unchanged. 12:08:54 Estimated blood loss: 10 ml 12:08:56 Post procedure instruction explained to patient.Patient verbalizes understanding. 12:08:56 Patient needs reinforcement of post procedure teaching. 12:08:57 Procedure and supply charges have been captured, reviewed, submitted and are correct. 12:13:24 Procedure Complication : No complications 12:13:27 Vital chart was stopped 12:13:28 See physician's report for complete and final results. 12:13:29 Report given to Pre/Post Procedure Room. 12:13:31 Patient transfered to Pre/Post Procedure Room with Stretcher. 12:13:33 Procedure ended. 12:13:33 Full Disclosure recording stopped 12:13:48 End room use (Document Last) Intervention Summary Intervention Notes Time ActionType Lesion and Equipment Used Action# Pressure Duration Attributes 11:56:01 Place stent Proximal PALMAZ BLUE 5 1 11 00:10 Renal, Left x 15 x 135 stent ([id number]) 11:59:02 Inflate Prox CX EUPHORA 2.0 x 1 11 00:10 balloon 15 Balloon ([id number]) 12:00:43 Place stent Prox CX ADAL RX 2.0 x 2 15 00:10 22 stent ([id number]) Device Usage Item Name Manufacture Quantity Catalog Number Hospital Part Current Minimal Lot# / Charge Number Stock Stock Serial# Code GUIDE 6FR XBLAD Cardinal 1 [id number] 235420 422001 10 3.5 catheter Health ([id number]) DXT 5 3DRC Unknown 1 0 0 Cordis 6Fr RDC Cardinal 1 [id number] 365547 287943 033432 5 guide catheter Health WHISPER 300cm Dunn 1 [id number] 853084 854675 125337 5 guide wire Vascular ([id number]) PALMAZ BLUE 5 x Cardinal 1 [id number] 303818 025171 083781 5 15 x 135 stent Health ([id number]) EUPHORA 2.0 x Medtronic 1 [id number] 270324 672968 766156 5 [id number] 15 Balloon ([id number]) ADAL RX 2.0 x Medtronic 1 [id number] 068677 6380903 996376 5 [id number] 22 stent ([id number]) EXOSEAL 6Fr Cardinal 1 EX600 300844 999901 134240 10 (EX600) Health ACIST Syringe Acist 1 52004 540918 843491 488015 20 (54210) [employer] Bag Decanter Microtek 1 2002S 175784 55016 856876 5 (2002S) Medical Inc. Medline Cath Cardinal 1 [id number] 773463 82889 423647 5 Pack Health ([id number]) DIAGNOSTIC WIRE [place] 1 466786 591900 055306 741750 30 .035 260cm J wire (172959) ACIST Hand Acist 1 03867 726986 587672 838239 5 Control (22131) [employer] ACIST Manifold Acist 1 32573 413335 480196 932064 5 (96725) [employer] Inc Tegaderm 4 x 4 3M 1 1626W 022987 946586 900374 5 (1626W) SHEATH Prelude Merit 1 HTZ-0H-22-35 178916 3395165 218265 5 6Fr 0.035 Medical (SRC-5B-51-035) CHOICE PT Extra [place] 1 [id number] 296985 491545 686980 5 Support 182cm Scientific wire ([id number]) Signature Audit [place] Stage Time Signature Unsigned Intra-Procedure 11/25/2017 Brett Montalvo 12:14:06 PM RT(R) Signatures Monitor : Brett Montalvo RT Signature : Date : Time : [facility] [address] [place] [address]
--- NOTE | ~2017-11-23 | HEMODYNAMI ---
PATIENT:HENNA DESAI MEDICAL RECORD: [id number] : 47 LOCATION:[facility] D.2116 ADMISSION DATE: 11/23/17 Generatedon:11/24/201716:12 Patient name: HENNA DESAI Patient #: [id number] SSN: DO B: 1945 Date of study: 11/24/2017 Page: Of Hemodynamic Procedure Report Patient Data Patient Demographics Procedure consent was obtained First Name: HENNA Gender: Male Last Name: LLOYD : 1945 [facility] Initial: KARLA Age: 72 year(s) Patient #: [id number] Race: Unknown Additional ID: [id number] Contact details [address]: [address] [place] [address] State: [place] City: [place] Zip code: [address] Past Medical History Allergies Allergen Reaction Date Comments Reported Other allergy 12/02/2016 tetnus Other allergy 11/24/2017 tetanus, toxiod? Admission Admission Data Admission Date: 11/23/2017 Admission Time: 21:57 Room #: D.2116 Procedure Procedure Types Cath Procedure Diagnostic Procedure [facility] w/Coronaries FFR/IVUS Intra-Coronary IVUS Initial Sedation Charges Moderate Sedation up to 15 minutes PCI Procedure Coronary Stent Coronary Stent Initial Coronary Stent Additional Procedure Description Procedure Date Procedure Date: 11/24/2017 Procedure Start Time: 15:48 Procedure End Time: 16:11 Procedure Staff Name Function Jake Gerber MD Performing Physician Rosalind Garcia RT Monitor Lilliana Villar RT Scrub Neri Granados RN Nurse Procedure Data Cath Procedure Fluoroscopy Diagnostic fluoroscopy Total fluoroscopy Time: 5.4 time: 5.4 min min Diagnostic fluoroscopy Total fluoroscopy dose: 905 dose: 905 mGy mGy Contrast Material Contrast Material Type Amount (ml) Isovue 300 138 Entry Location Entry Primary Successful Side Size Upsize Upsize Entry Closure Succes sful Closure Location (Fr) 1 (Fr) 2 (Fr) Remarks Device Remarks Femoral Right 5 Fr 6 Fr Exoseal artery Short Estimated blood loss: 10 ml Diagnostic catheters Device Type Used For End Catheter Placement MULTIPACK Pigtail 5 Fr LV Angiography catheter MULTIPACK JL 4.0 5Fr Left Coronary catheter Angiography MULTIPACK 3DRC 5Fr Internal mammary catheter arteriography MULTIPACK 3DRC 5Fr SVG Angiography catheter DIAGNOSTIC AR 2 MOD 5 Fr SVG Angiography catheter ([id number]) Procedure Complications No complications Procedure Medications Medication Administration Route Dosage 0.9% NaCl I.V. 100 ml/hr Oxygen etCO2 Nasal cannula 2 l/min Heparin Flush Bag added to field 2 bags (1000units/500ml NS) Lidocaine 2% added to field 20 Versed I.V. 2 mg Fentanyl I.V. 100 mcg Versed I.V. 1 mg Heparin Bolus I.V. 4000 units Versed I.V. 1 mg Lopressor I.V. 5 mg Hemodynamics Rest Heart Rate: 107 (bpm) Snapshots Pre Cath Intra NCS Post Cath Vital Signs Time Heart Resp SPO2 etCO2 NIBP (mmHg) Rhythm Pain Sedation Rate (ipm) (%) (mmHg) Status Level (bpm) 15:38:48 107 20 96 21.7 180/104(148) NSR 0 (11) 10(A) , No pain 15:43:37 104 18 96 35.1 174/95(126) NSR 0 (11) 10(A) , No pain 15:48:26 104 12 95 33.7 165/102(137) NSR 0 (11) 10(A) , No pain 15:53:15 104 17 96 35.9 172/92(133) NSR 0 (11) 10(A) , No pain 15:58:06 103 15 96 33.6 167/91(132) NSR 0 (11) 9(A) , No pain 16:02:56 105 13 96 0 165/94(131) NSR 0 (11) 9(A) , No pain 16:07:41 97 15 95 18.7 156/92(131) NSR 0 (11) 10(A) , No pain Medications Time Medication Route Dose Verified Delivered Reason Notes Effectiveness by by 15:43:51 0.9% NaCl I.V. 100 Neri Neri Per physician ml/hr Roberta Granados RN RN 15:44:00 Oxygen etCO2 2 Neri Neri Per physician Nasal l/min Roberta grewal RN RN 15:44:10 Heparin Flush added 2 Neri Neri used for Bag to bags Lormary kay Roberta procedure (1000units/500ml field RN RN NS) 15:44:22 Lidocaine 2% added 20ml Neri Neri for local to vial Lorigan Roberta anesthetic field RN RN 15:49:25 Versed I.V. 2 mg Neri Neri for sedation Roberta Granados RN RN 15:49:33 Fentanyl I.V. 100 Neri Neri for sedation mcg Roberta Granados RN RN 15:50:50 Versed I.V. 1 mg Neri Neri for sedation Roberta Granados RN RN 15:59:22 Heparin Bolus I.V. 4000 Neri Neri for units Lorigan Roberta anticoagulation RN RN 16:01:50 Versed I.V. 1 mg Neri Neri for sedation Roberta Granados RN RN 16:09:55 Lopressor I.V. 5 mg Neri Neri for Lorigan Lormary kay hypertension RN surgery aide Log Time Note 15:16:17 Time tracking: Regular hours (M-F 7:00 - 5:00) 15:16:21 Plan of Care:Hemodynamics will remain stable., Cardiac rhythm will remain stable., Comfort level will be maintained., Respiratory function will remain adequate., Patient/ family verbilizes understanding of procedure., Procedure tolerated without complication., Recovers from procedure without complications.. 15:18:59 Rosalind Counts RT(R) sent for patient. Start room use. 15:27:38 Patient received from PCU to CCL 1 Alert and oriented. Tansferred to table in Supine position. 15:37:43 Warm blankets applied, and marcello hugger turned on for patient comfort. 15:37:44 Correct patient and procedure confirmed by team. 15:37:45 Signed procedure consent form obtained from patient. 15:37:46 ECG and BP/O2 sat monitors applied to patient. 15:37:47 Full Disclosure recording started 15:37:48 Vital chart was started 15:38:40 Baseline sample Acquired. 15:38:44 Rhythm: sinus tachycardia 15:38:53 H&P Date Dictated: 11/24/2017 Within 30 days and on chart.. 15:38:54 Pre-procedure instructions explained to patient. 15:38:54 Pre-op teaching completed and patient verbalized understanding. 15:38:56 Family in patients room. 15:38:57 Patient NPO since Midnight. 15:39:29 Patient allergic to Other allergytetanus, toxiod? 15:39:34 Is the patient allergic to Iodine/contrast media? No. 15:39:36 Is patient on blood thinner?Yes 15:39:38 ACC The patient was administered the following blood thiners within the last 24 hours: ACCPlavix 15:39:40 Patient diabetic? Yes. 15:39:41 If diabetic: On Metformin? Yes 15:39:44 If on Metformin: Last Dose? 11/23/2017 15:39:47 Previous problem with sedation/anesthesia? No ? 15:39:48 Snore? Yes 15:39:49 Sleep apnea? No 15:39:50 Deviated septum? No 15:39:50 Opens mouth fully? Yes 15:39:52 Sticks out tongue? Yes 15:39:54 Airway obstruction? No ? 15:39:56 Dentures? Yes in 15:39:59 Pre procedure: right dorsailis pedis pulse 2+ Normal; easily identifiable; not easily obliterated 15:40:01 Patient pain scale 0/10 ?. 15:40:16 IV patent on arrival in left antecubital with 0.9% NaCl at O. 15:40:18 Lab results completed and on chart. 15:40:21 Right groin area was prepped with chlora-prep and draped in sterile fashion 15:40:22 Alarms reviewed by R. N. 15:40:22 Sharps counted by scrub and verified by R.N. 15:40:33 Use device set Femoral Dx 15:40:34 ACIST Syringe (56776) opened to sterile field. 15:40:35 Bag Decanter (2002) opened to sterile field. 15:40:35 Medline Cath Pack ([id number]) opened to sterile field. 15:40:36 DIAGNOSTIC WIRE .035 260cm J wire (223711) opened to sterile field. 15:40:36 ACIST Hand Control (14222) opened to sterile field. 15:40:37 ACIST Manifold (54125) opened to sterile field. 15:40:37 DIAGNOSTIC Multipack 5Fr catheter set ([id number]) opened to sterile field. 15:40:38 Tegaderm 4 x 4 (1626W) opened to sterile field. 15:40:39 SHEATH Prelude 5Fr 0.035 (BFL-3J-13-035) opened to sterile field. 15:43:43 Zero performed for pressure channel P1 15:43:47 Zero performed for pressure channel P1 15:43:51 0.9% NaCl 100 ml/hr I.V. was administered by Neri Granados RN; Per physician; 15:43:51 Zero performed for pressure channel P1 15:43:54 Zero performed for pressure channel P1 15:43:56 Zero performed for pressure channel P1 15:44:00 Oxygen 2 l/min etCO2 Nasal cannula was administered by Neri Granados RN; Per physician; 15:44:00 Zero performed for pressure channel P1 15:44:04 Zero performed for pressure channel P1 15:44:10 Heparin Flush Bag (1000units/500ml NS) 2 bags added to field was administered by Neri Granados RN; used for procedure; 15:44:22 Lidocaine 2% 20ml vial added to field was administered by Neri Granados RN; for local anesthetic; 15:44:49 Zero performed for pressure channel P1 15:44:52 Zero performed for pressure channel P1 15:45:59 Final Timeout: patient, procedure, and site verified with staff and physician. All members of the team are in agreement. 15:46:00 Right groin site verified by team. 15:46:03 Physical assessment completed. ASA score P 2 - A patient with mild systemic disease as per Jake Gerber MD. 15:46:06 Sedation plan: IV Moderate Sedation Medication:Versed, Fentanyl 15:47:27 Procedure started. 15:48:58 Local anesthetic to right femoral artery with Lidocaine 2% by Jake Gerber MD.INITIAL ACCESS ONLY 15:49:25 Versed 2 mg I.V. was administered by Neri Granados RN; for sedation; 15:49:33 Fentanyl 100 mcg I.V. was administered by Neri Granados RN; for sedation; 15:49:45 A 5 Fr sheath was inserted into the Right Femoral artery 15:50:23 A MULTIPACK Pigtail 5 Fr catheter was advanced over the wire and used for LV Angiography. 15:50:43 LV gram done using MEEKS 15:50:50 Versed 1 mg I.V. was administered by Neri Lorigan RN; for sedation; 15:50:50 EF : 60 % 15:50:52 Injector settings: Ml/sec: 10, Volume: 20, 15:50:54 Catheter removed. 15:51:26 A MULTIPACK JL 4.0 5Fr catheter was advanced over the wire and used for Left Coronary Angiography. 15:51:51 Catheter removed. 15:52:20 A MULTIPACK 3DRC 5Fr catheter was advanced over the wire and used for Internal mammary arteriography. TO LAD 15:52:30 Use device set TAU PCI 15:52:36 SHEATH Prelude 6Fr 0.035 (BYU-2O-64-035) opened to sterile field. 15:52:53 INFLATOR Merit BasixCompak (KF8856) opened to sterile field. 15:52:59 CHOICE PT Extra Support 182cm wire ([id number]) opened to sterile field. 15:53:50 A MULTIPACK 3DRC 5Fr catheter was advanced over the wire and used for SVG Angiography. 15:55:59 Catheter removed. 15:56:16 A DIAGNOSTIC AR 2 MOD 5 Fr catheter ([id number]) was advanced over the wire and used for SVG Angiography. TO RAMUS 15:57:00 Catheter removed. 15:57:08 Sheath upsized to a 6 Fr Short. 15:57:14 GUIDE 6FR AR 2.0 catheter ([id number]) opened to sterile field. 15:57:58 6 Fr AR 2.0 guide catheter was inserted over the wire 15:58:11 CHOICE PT ES wire advanced. 15:58:55 IVUS catheter advanced over wire. 15:59:22 Heparin Bolus 4000 units I.V. was administered by Neri Granados RN; for anticoagulation; 15:59:26 IVUS pass to RCA lesion performed. 15:59:27 IVUS catheter removed over wire. 16:01:50 Versed 1 mg I.V. was administered by Neri Granados RN; for sedation; 16:02:03 Place stent Inflation Number: 1 A ADAL RX 2.25 x 18 stent ([id number]) was prepped and advanced across the R PDA. The stent was deployed at 19 SPEEDY for 0:07 (min:sec). 16:02:38 Stent catheter was removed intact over wire. 16:03:42 Place stent Inflation Number: 1 A ADAL RX 4.0 x 22 stent ([id number]) was prepped and advanced across the Prox RCA. The stent was deployed at 17 SPEEDY for 0:10 (min:sec). 16:04:01 Stent catheter was removed intact over wire. 16:04:01 Wire removed. 16:04:02 Guide catheter removed. 16:04:08 Sheath removed intact; hemostasis achieved with Exoseal to the Right Femoral artery. 16:04:10 Procedure ended.(Physican Out) 16:04:21 EXOSEAL 6Fr (EX600) opened to sterile field. 16:04:26 Fluoroscopy time 05.40 minutes. 16:04:30 Flurop Dose total: 905 16:04:30 Fluoroscopy dose: 905 mGy 16:04:33 Contrast amount:Isovue 300 138ml. 16:04:34 Sharps counted by scrub and verified by R.N. 16:04:36 Insertion/operative site no bleeding no hematoma. 16:04:38 Post-op/insertion site Right Femoral artery dressed using a 4 x 4 and Tegaderm. 16:04:40 Post right femoral artery:stable, clean and dry 16:06:41 Post Procedure Pulses reassessed and unchanged 16:06:49 Post-procedure physical assessment completed. ASA score P 2 - A patient with mild systemic disease as per Jake Gerber MD. 16:06:51 Post procedure rhythm: unchanged. 16:06:54 Estimated blood loss: 10 ml 16:06:56 Post procedure instruction explained to patient.Patient verbalizes understanding. 16:06:56 Patient needs reinforcement of post procedure teaching. 16:07:04 Procedure type changed to Cath procedure, Diagnostic procedure, LHC, LHC w/Coronaries, FFR/IVUS, Intra-Coronary IVUS Initial, Sedation Charges, Moderate Sedation up to 15 minutes, PCI procedure, Coronary Stent, Coronary Stent Initial, Coronary Stent Additional 16:07:58 Procedure Complication : No complications 16:08:01 See physician's report for complete and final results. 16:08:48 [place] IVUS Catheter (89207Q) opened to sterile field. 16:09:55 Lopressor 5 mg I.V. was administered by Neri Granados RN; for hypertension; 16:10:40 Procedure and supply charges have been captured, reviewed, submitted and are correct. 16:10:45 Vital chart was stopped 16:10:56 Report given to PCU. 16:11:01 Patient transfered to PCU with Bed. 16:11:08 Procedure ended. 16:11:08 Full Disclosure recording stopped 16:11:10 End room use (Document Last) Intervention Summary Intervention Notes Time ActionType Lesion and Equipment Used Action# Pressure Duration Attributes 16:02:03 Place stent R PDA ADAL RX 2.25 x 1 19 00:07 18 stent ([id number]) 16:03:42 Place stent Prox RCA ADAL RX 4.0 x 1 17 00:10 22 stent ([id number]) Device Usage Item Name Manufacture Quantity Catalog Number Hospital Part Current Minimal Lot# / Charge Number Stock Stock Serial# Code ACIST Syringe Acist 1 97625 496281 463082 151142 20 (97911) Medical Systems Inc Bag Decanter Microtek 1 2001S 883906 81249 424517 5 () Medical Inc. Medline Cath Cardinal 1 [id number] 573678 48139 832784 5 Pack Health ([id number]) DIAGNOSTIC WIRE [place] 1 712297 713769 018166 333922 30 .035 260cm J wire (931651) ACIST Hand Acist 1 85730 858240 160208 734899 5 Control (62567) [employer] Systems Inc ACIST Manifold Acist 1 77611 003149 750779 565928 5 (88875) Medical Systems Inc DIAGNOSTIC Cardinal 1 ON5505 593370 72558 516073 30 Multipack 5Fr Health catheter set (SZ0133) Tegaderm 4 x 4 3M 1 1626W 523557 873294 301402 5 (1626W) SHEATH Prelude Merit 1 HVO-7A-42-035 716082 370632 293106 5 5Fr 0.035 Medical (QNT-5J-44-035) MULTIPACK Cardinal 1 896807 5 Pigtail 5 Fr Health catheter MULTIPACK JL Cardinal 1 219223 5 4.0 5Fr Health catheter MULTIPACK 3DRC Cardinal 1 503788 5 5Fr catheter Health SHEATH Prelude Merit 1 WWV-7A-43-35 035142 4362536 259800 5 6Fr 0.035 Medical (ANI-6U-88-035) INFLATOR Merit Merit 1 UB7903 647185 978960 781831 15 GeriJoy (SE8777) CHOICE PT Extra [place] 1 [id number] 960678 871446 620627 5 Support 182cm Scientific wire ([id number]) DIAGNOSTIC AR 2 Cardinal 1 [id number] 528073 973702 249174 20 MOD 5 Fr Health catheter ([id number]) GUIDE 6FR AR Medtronic 1 [id number] 239288 58159 690315 1 2.0 catheter (FN5PM09) ADAL RX 2.25 x Medtronic 1 [id number] 480097 4090805 751244 5 [id number] 18 stent ([id number]) ADAL RX 4.0 x Medtronic 1 [id number] 751999 0718929 569239 5 [id number] 22 stent ([id number]) EXOSEAL 6Fr Cardinal 1 EX600 928644 549599 868080 10 (EX600) [facility] 1 [id number] 737153 515840 961271 8 [place] IVUS Catheter (40858N) Signature Audit [place] Stage Time Signature Unsigned Intra-Procedure 11/24/2017 Rosalind 4:12:54 PM Counts RT(R) Signatures Monitor : Rosalind Signature : Counts RT Date : Time : [place] [id number] [facility] [place] [address]
--- NOTE | ~2017-11-23 | OP ---
PATIENT NAME: HENNA DESAI MEDICAL RECORD: [id number] :47 LOCATION:D.M2 D.2116 ADMISSION DATE:11/23/17 SURGEON: GARRETT TREJO MD DATE OF OPERATION: 11/24/2017 DATE OF SERVICE: 11/24/2017 PROCEDURES: 1. PTCA stent of RCA. 2. Intravascular ultrasound. 3. ERNST angiography. 4. Vein graft angiography. 5. Left ventriculogram. 6. Left heart catheterization. 7. Selective coronary angiography. INDICATION: Angina and coronary artery disease. PROCEDURE IN DETAIL: After informed consent was obtained and after detailed description of risks, benefits as well as alternative therapies, the patient elected to proceed with angiogram and angioplasty. The right femoral area was prepped and draped in normal sterile fashion. Right femoral artery was cannulated via modified Seldinger technique with placement of 6-Niger[place] sheath. All catheters exchanged through this sheath. FINDINGS: The left ventriculogram was performed in standard 30-degree MEEKS view, reveals good cardiac wall motion throughout all segments. Overall ejection fraction 55% to 60%. SELECTIVE CORONARY ANGIOGRAPHY: 1. Left main has no significant angiographic disease. 2. Left anterior descending is totally occluded in the proximal vessel. 3. ERNST to the LAD is widely patent. 4. Ramus intermedius is totally occluded. 5. Vein graft to the ramus intermedius is widely patent. 6. The left circumflex has 80% to 90% stenosis in mid vessel. The distal circumflex is non-grafted. 7. The right coronary has 77% stenosis confirmed by intravascular ultrasound proximally and a 90% stenosis of the PDA. PTCA STENT OF THE RIGHT PDA: The stent used is a 2.25 x 18 mm [place]. PTCA STENT OF THE RCA: The stent used is a 4.0 x 22 mm [place]. Result was 0% residual stenosis. OVERALL IMPRESSION: Successful percutaneous transluminal coronary angioplasty stent of the right coronary artery and posterior descending artery going from 77 and 95% initial stenosis to 0% residual. PLAN: PTCA stent of the left circumflex in the near future. TRANSINT:[id number] Voice Confirmation ID: [id number] DOCUMENT ID: [id number] OPERATIVE REPORT [id number] HENNA DESAIGARRETT SEN MD at 8158 CC: [id number] DICTATION DATE: 11/24/17 1609 RAILWAYS ASSISTANT: 11/24/17 1622 ADM IN [facility] [address] [place] [address]
--- NOTE | ~2017-11-23 | OP ---
PATIENT NAME: HENNA DESAI MEDICAL RECORD: [id number] :46 LOCATION:D.M2 D.2116 ADMISSION DATE:11/23/17 SURGEON: GARRETT TREJO MD DATE OF OPERATION: 11/25/2017 PROCEDURES: 1. PLASTERER HELPER stent left renal artery. 2. Bilateral selective renal angiography. 3. PTCA stent of left circumflex. 4. Selective coronary angiography. INDICATION: Angina, coronary artery disease, and renovascular hypertension. PROCEDURE IN DETAIL: After informed consent was obtained and after a detailed description of risks, benefits as well as alternative therapies, the patient elected to proceed with angiogram and angioplasty. The left femoral area was prepped and draped in normal sterile fashion. Left femoral artery was cannulated via modified Seldinger technique with placement of 6-[place] sheath. All catheters exchanged through this sheath. FINDINGS: The right renal artery is a solitary artery off the aorta with no significant pressure damping at the ostium. No significant renal artery stenosis. The left renal artery is a solitary artery off the aorta with 80% to 85% stenosis in the proximal vessel. PLASTERER HELPER STENT OF THE LEFT RENAL ARTERY: The stent used was 5 x 15 [place] stent. Result was 0% residual stenosis. The left circumflex has 90% stenosis in the mid vessel. This was addressed with a 2.0 x 22 mm [place] stent. Result was 0% residual stenosis. OVERALL IMPRESSION: Successful percutaneous transluminal angioplasty stent of the left renal artery and successful percutaneous transluminal coronary angioplasty stent of the left circumflex, both going from 80% to 90% initial stenosis to 0% residual. TRANSINT:[id number] Voice Confirmation ID: [id number] DOCUMENT ID: [id number] GARRETT TREJO MD at 1616 CC: [id number] DICTATION DATE: 11/25/17 1212 BELT LOOP MACHINE OPERATOR: 11/25/17 1217 DIS IN 11/25/17 [place] [id number] [place] [id number]
--- NOTE | ~2017-11-23 | EC ---
PATIENT:HENNA DESAI DATE OF SERVICE: 11/23/17 SEX: M MEDICAL RECORD: [id number] DATE OF : 47 LOCATION:D.M2 D.211 AGE OF PATIENT: 72 ADMISSION DATE: 11/23/17 REFERRING PHYSICIAN: INTERPRETING PHYSICIAN: KATIE PATEL MD ECHOCARDIOGRAM REPORT ECHO CHARGES 4 ECHO COMPLETE Date: 11/24/17 CLINICAL DIAGNOSIS: ELEVATED TROPONIN ECHOCARDIOGRAPHIC MEASUREMENTS (adult normal given) AC root (d.<3.7cm) 3.1 cm LV Septum d (<1.2 cm> 1.5 cm Valve Excursion 2.0 cm LV Septum (systole) 1.5 cm Left Atria (s.<4.0cm> 5.0 cm LVPW d(<1.2cm) 1.2 cm RV (d.<2.3cm) 2.7 cm LVPW (sytole) 1.3 cm LV diastole(<5.6CM) 5.0 cm MV E-F(>70mm/sec) cm LV systole 4.5 cm LVOT Diameter 1.9 cm MV exc.(>10mm) cm Est.ejection fraction (50-75%) % DOPPLER: LVIT cm/sec A 123 cm/sec E 88 cm/sec LA cm/sec RVSP 21.1 mmHg LVOT 114 cm/sec AOP1/2T m/s Asc. Ao 148 cm/sec RVOT 87 cm/sec RA cm/sec PA 86 cm/sec AV Gradient Peak 8.8 mmHg AV Mean 5.4 mmHg AV Area 2.0 cm MV Gradient Peak 6.8 mmHg MV Mean 4.6 mmHg MV Area cm COMMENTS: Zumba Instructor: Izabel KIRAN Inside Sales Account Representative: 4 Dr. Patel TAPE# PACS Pericardial Effusion N DATE OF SERVICE: PROCEDURE: Transthoracic echocardiogram. FINDINGS: 1. Left ventricle is normal. Ejection fraction is 65%. No regional wall motion abnormalities. 2. The right ventricle is normal. 3. The left atrium is mildly to moderately dilated. 4. The aortic valve is normal. ECHOCARDIOGRAM REPORT [id number] HENNA DESAI 5. The mitral valve is normal. 6. Tricuspid valve is normal. 7. Right atrium is normal. CONCLUSIONS: This is a normal echocardiogram. There is mild evidence of hypertensive heart disease. TRANSINT:[id number] Voice Confirmation ID: [id number] DOCUMENT ID: [id number] KATIE PATEL MD at 0849 CC: [id number] DICTATION DATE: 11/25/17812 HANG GLIDING INSTRUCTOR: 11/25/17 08 DIS IN 11/25/17 [place] [id number] [place] [id number]
[~2017-11-23 19:37] MED LIST: BAYER CHEWABLE81 MG PO; EFFEXOR XR150 MG PO; FLOMAX0.4 MG PO; GLUCOPHAGE1000 MG PO; LEVEMIR100 U/M1 SC; NEURONTIN600 MG PO; NOVOLOG100 U/M1 SC; PLAVIX75 MG PO; POTASSIUM99 M1 PO; PRINIVIL20 MG PO; PROPECIA1 MG PO; TOPROL XL50 MG PO; ZOCOR40 MG PO
[2017-11-23 20:05] LABS: BASOPHILS 0.3 % (0-2); EOSINOPHILS 0.7 % (0-7); HEMATOCRIT 36.4 % (42.0-54.0); HEMOGLOBIN 12.9 g/dL (13.5-17.5); IMMATURE GRANULOCYTES 0.2 % (0-5); LYMPHOCYTES 15.5 % (15-50); MCHC 35.4 g/dL (31.0-37.0); MCV 87.5 fL (80.0-100.0); MEAN PLATELET VOLUME 9.9 fL (7.4-10.4); NEUTROPHILS 74.3 % (40-80); PLATELET COUNT 163 10x3/uL (130-400); RBC 4.16 10x6/uL (4.20-6.10); RDW 12.9 % (11.5-14.5); WBC 9.7 10x3/uL (4.8-10.8)
[2017-11-23 20:18] LABS: ALKALINE PHOSPHATASE 51 U/L (46-116); ALT (SGPT) 35 U/L (10-68); BILIRUBIN - TOTAL 0.27 mg/dL (0.2-1.3); CALC OSMOLALITY 289 mosm/kg (275-300); CALCIUM 9.3 mg/dL (8.5-10.1); CARBON DIOXIDE 29.3 mmol/L (21.0-32.0); CHLORIDE - SERUM 105 mmol/L (98-107); CREATININE - SERUM 1.7 mg/dL (0.6-1.3); GLUCOSE 85 mg/dL (74-106); POTASSIUM - SERUM 4.2 mmol/L (3.5-5.1); PROTEIN - SERUM 7.7 g/dL (6.4-8.2); SODIUM 143 mmol/L (136-145); UREA NITROGEN 28 mg/dL (7-18); eGFR NON AFRICAN AMERICAN 42 mL/min (90-120)
[2017-11-23 20:35] LABS: AMYLASE - SERUM 46 U/L (25-115); CKMB 5.8 U/L (0.0-3.6); CREATINE KINASE 97 UL (21-232); LIPASE 146 U/L (73-393); MAGNESIUM - SERUM 1.5 mg/dL (1.8-2.4); PRO BNP 127 pg/mL (0-125)
[2017-11-23 20:38] LABS: TROPONIN-I 0.817 ng/mL (0.000-0.060)
[2017-11-23 22:28] VITALS: BP 160/91
[2017-11-24 02:54] LABS: BASOPHILS 0.1 % (0-2); EOSINOPHILS 0.1 % (0-7); HEMATOCRIT 35.6 % (42.0-54.0); HEMOGLOBIN 12.7 g/dL (13.5-17.5); IMMATURE GRANULOCYTES 0.3 % (0-5); MCH 31.2 pg (26.0-34.0); MCHC 35.7 g/dL (31.0-37.0); MCV 87.5 fL (80.0-100.0); MEAN PLATELET VOLUME 10.2 fL (7.4-10.4); MONOCYTES 6.1 % (2-11); NEUTROPHILS 83.4 % (40-80); PLATELET COUNT 158 10x3/uL (130-400); RBC 4.07 10x6/uL (4.20-6.10); WBC 15.4 10x3/uL (4.8-10.8)
[2017-11-24] MEDS ORDERED: CINNAMON500 MG PO (03:04)
[2017-11-24] MEDS ORDERED: VITAMIN D31000 UNIT PO (03:04)
[2017-11-24] MEDS ORDERED: FISH OIL 1,0001 CA1 PO (03:04)
[2017-11-24] MEDS ORDERED: VITAMIN B-122500 MCG PO (03:05)
[2017-11-24] MEDS ORDERED: ELAVIL25 MG PO (03:05)
[2017-11-24] MEDS ORDERED: MIRAPEX0.125 MG PO (03:05)
[2017-11-24 03:42] LABS: CALC OSMOLALITY 292 mosm/kg (275-300); CALCIUM 8.8 mg/dL (8.5-10.1); CARBON DIOXIDE 25.3 mmol/L (21.0-32.0); CHLORIDE - SERUM 104 mmol/L (98-107); CKMB 8.8 U/L (0.0-3.6); CREATINE KINASE 144 UL (21-232); CREATININE - SERUM 1.6 mg/dL (0.6-1.3); GLUCOSE 224 mg/dL (74-106); MAGNESIUM - SERUM 1.6 mg/dL (1.8-2.4); POTASSIUM - SERUM 4.3 mmol/L (3.5-5.1); SODIUM 141 mmol/L (136-145); UREA NITROGEN 26 mg/dL (7-18); eGFR NON AFRICAN AMERICAN 45 mL/min (90-120)
[2017-11-24 03:43] LABS: TROPONIN-I 1.727 ng/mL (0.000-0.060)
[2017-11-24 04:00] VITALS: BP 162/103
[2017-11-24 04:11] VITALS: BP 192/79; Ht 180.3 cm; Wt 107.3 kg
[2017-11-24 07:44] VITALS: BP 156/81
[2017-11-24 08:59] LABS: CKMB 5.8 U/L (0.0-3.6); CREATINE KINASE 165 UL (21-232)
[2017-11-24 09:01] LABS: TROPONIN-I 1.369 ng/mL (0.000-0.060)
[2017-11-24 10:58] VITALS: BP 142/76
[2017-11-24 14:59] LABS: CREATINE KINASE 261 UL (21-232); TROPONIN-I 0.935 ng/mL (0.000-0.060)
[2017-11-24 15:38] VITALS: BP 163/80
[2017-11-24 16:25] LABS: APPEARANCE CLEAR (CLEAR); BILIRUBIN NEGATIVE (NEGATIVE); COLOR YELLOW (YELLOW); GLUCOSE 1000 mg/dL (NEGATIVE); KETONE NEGATIVE (NEGATIVE); NITRITE NEGATIVE (NEGATIVE); PROTEIN NEGATIVE (NEGATIVE); UROBILINOGEN NORMAL (NORMAL)
[2017-11-24 20:00] VITALS: BP 158/84
[2017-11-25 04:00] VITALS: BP 167/78
[2017-11-25 06:17] LABS: BASOPHILS 0.2 % (0-2); EOSINOPHILS 3.6 % (0-7); HEMATOCRIT 34.5 % (42.0-54.0); HEMOGLOBIN 12.3 g/dL (13.5-17.5); IMMATURE GRANULOCYTES 0.1 % (0-5); LYMPHOCYTES 17.6 % (15-50); MCH 31.5 pg (26.0-34.0); MCHC 35.7 g/dL (31.0-37.0); MCV 88.2 fL (80.0-100.0); MEAN PLATELET VOLUME 10.2 fL (7.4-10.4); MONOCYTES 7.6 % (2-11); NEUTROPHILS 70.9 % (40-80); PLATELET COUNT 140 10x3/uL (130-400); RBC 3.91 10x6/uL (4.20-6.10); RDW 13.2 % (11.5-14.5)
[2017-11-25 06:32] LABS: WBC 8.6 10x3/uL (4.8-10.8)
[2017-11-25 06:40] LABS: ALBUMIN 3.3 g/dL (3.4-5.0); ALKALINE PHOSPHATASE 47 U/L (46-116); ALT (SGPT) 28 U/L (10-68); BILIRUBIN - TOTAL 0.61 mg/dL (0.2-1.3); CALC OSMOLALITY 285 mosm/kg (275-300); CALCIUM 8.4 mg/dL (8.5-10.1); CARBON DIOXIDE 25.2 mmol/L (21.0-32.0); CHLORIDE - SERUM 107 mmol/L (98-107); GLUCOSE 185 mg/dL (74-106); MAGNESIUM - SERUM 1.7 mg/dL (1.8-2.4); POTASSIUM - SERUM 3.8 mmol/L (3.5-5.1); PROTEIN - SERUM 6.9 g/dL (6.4-8.2); SODIUM 141 mmol/L (136-145); UREA NITROGEN 12 mg/dL (7-18); eGFR NON AFRICAN AMERICAN 78 mL/min (90-120)
[2017-11-25 07:44] VITALS: BP 143/80
[2017-11-25 11:16] VITALS: BP 146/71
[2017-11-25] MEDS ORDERED: PLAVIX75 MG PO (14:42)
[2017-11-25 15:33] VITALS: BP 166/91
== END 2017-11-25 16:50 | disposition home or self-care (01) ==
LOC: D.ER 19:37 → OBSVTIME 21:57 → D.M2 21:57
PROVIDERS: Family Medicine
DX: I25.119 Atherosclerotic heart disease of native coronary artery with unspecified angina pectoris (principal); Z95.1 Presence of aortocoronary bypass graft; E11.65 Type 2 diabetes mellitus with hyperglycemia; E11.40 Type 2 diabetes mellitus with diabetic neuropathy, unspecified; I10 Essential (primary) hypertension; I70.1 Atherosclerosis of renal artery; I15.0 Renovascular hypertension; I25.82 Chronic total occlusion of coronary artery
CPT/HCPCS: 93459; 92978; 37236; C9600 ×2; C9601

== ENCOUNTER 2018-07-05 07:25 | Day surgery (SDC) | payer MEDICARE, BC ==
[2018-07-04 15:30] LABS: HEMATOCRIT 34.9 % (42.0-54.0); HEMOGLOBIN 12.4 g/dL (13.5-17.5); MCH 31.2 pg (26.0-34.0); MCHC 35.5 g/dL (31.0-37.0); MCV 87.9 fL (80.0-100.0); MEAN PLATELET VOLUME 10.5 fL (7.4-10.4); RBC 3.97 10x6/uL (4.20-6.10); RDW 12.6 % (11.5-14.5); WBC 7.2 10x3/uL (4.8-10.8)
[2018-07-04 15:40] LABS: ANION GAP 12.9 mmol/L (8-16); CALCIUM 9.7 mg/dL (8.5-10.1); CARBON DIOXIDE 27.4 mmol/L (21.0-32.0); CREATININE - SERUM 1.5 mg/dL (0.6-1.3); POTASSIUM - SERUM 4.3 mmol/L (3.5-5.1)
[~2018-07-05 07:25] MED LIST changes: +CINNAMON500 MG PO; +EDARBYCLOR 40-1 EACH PO; +EFFEXOR37.5 MG PO; +ELAVIL25 MG PO; +FISH OIL 1,0001 CA1 PO; +MIRAPEX0.125 MG PO; -PROPECIA1 MG PO; +PROSCAR5 MG PO; +THEREMS-M1 TAB PO; +VITAMIN B-122500 MCG PO; +VITAMIN D31000 UNIT PO
[2018-07-05 09:19] VITALS: BP 139/79; BMI 32.4
--- NOTE | 2018-07-05 13:24 | NUR ---
1245 ASSISTED ON TOILET AND PT VOIDED LARGE AMT. DRIPPING FROM PENIS. DIAPER. APPLIED.
--- NOTE | 2018-07-06 08:33 | OP ---
PATIENT NAME: HENNA DESAI MEDICAL RECORD: [id number] :47 LOCATION:[facility] ADMISSION DATE: SURGEON: JUNIOR WELLS MD DATE OF OPERATION: 07/05/2018 SURGEON: Junior Wells MD ELL TUTOR: DAVID by HÉCTOR Rosales CRNA DIAGNOSIS: Bladder outlet obstruction. FINDINGS: Bladder neck obstruction with trabeculated bladder without tumors. PROCEDURE: UroLift times 4 in a box configuration. BLOOD LOSS: None. 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 He was already on finasteride and tamsulosin at that time. He remains on these medications. The voiding symptoms have become worse with time. He has nocturia times 3-4 with no daytime urinary frequency. He has occasional urge incontinence. There is hesitancy in getting started and he feels that the stream is good. He has to double void to fully empty his bladder. The tamsulosin gives him dizziness and presyncopal episodes. He fell 9 times 3 years ago and he was diagnosed with vasovagal attacks at that time, which I suspect are due to tamsulosin. On the 2 medications, his IPSS score is 13. The quality of life score is 4. His PSA is less than 0.1, postvoid residual was 29 mL. He comes to have the UroLift procedure done. HE IS ALLERGIC TO TETANUS TOXOID and he was given Ancef station cashier to the OR. 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 DESCRIPTION OF PROCEDURE: The patient was given IV sedation. He was placed in lithotomy position and prepped and draped. The UroLift scope was introduced. No penile urethral strictures were seen. The prostatic urethra is not obstructive. However, he has a tall obstructive bladder neck. Going into the bladder, he has a trabeculated bladder with some cellules and diverticula. No bladder tumors were seen. The four UroLift implants are placed in the box configuration around the bladder neck. They were placed 1.5 cm distal to the bladder neck. The 2 anterior ones were placed at the lateral sulcus. The 2 posterior ones were placed at the midline level. At the end of the procedure, he had a nice open bladder neck. The bladder was left partly full in order to allow for a voiding trial. He will be seen in followup in 1 months' time. TRANSINT:[id number] Voice Confirmation ID: [id number] DOCUMENT ID: [id number] JUNIOR WELLS MD at 0833 CC: [id number] DICTATION DATE: 07/05/18 1210 SHAFT TENDER: 07/06/18 0441 [facility] 07/05/18 [place] [id number] [place] [id number]
== END 2018-07-05 13:59 | disposition home or self-care (01) ==
LOC: D.OPS 07:25 → D.PAN 09:30 → D.OPS 10:25 → D.PAN 10:25 → D.OPS 12:00
PROVIDERS: Anesthesiology; ATTEND Urology
DX: N32.0 Bladder-neck obstruction (principal); N32.89 Other specified disorders of bladder; N40.1 Benign prostatic hyperplasia with lower urinary tract symptoms; R35.1 Nocturia; R39.11 Hesitancy of micturition; N39.41 Urge incontinence; Z01.812 Encounter for preprocedural laboratory examination